=== PATIENT | male | born 1965 | race Caucasian/White ===

== ENCOUNTER → 2021-05-19 | Outpatient (CLI) | payer OTHER ==
--- NOTE | 2021-05-19 16:27 | Diagnostic Imaging Report ---
INDICATION: Worsening back pain. FINDINGS: The lumbar statures are normal. The alignment is anatomic. No fracture or suspicious endplate irregularity. There is only mild facet arthrosis at the L5-S1 level. IMPRESSION: Unremarkable radiographic appearance of the anatomically aligned lumbar spine. Dictated by: Dictated on workstation # [id number]
--- NOTE | 2021-05-19 18:02 | Diagnostic Imaging Report ---
EXAM: Bilateral ankles, two views. HISTORY: Ankle pain. COMPARISON: None available. FINDINGS: Right ankle: Intramedullary nail is present in the right tibia. Mortise appears intact. Talar dome is normal. No acute fracture is seen. Left ankle: Mortise is intact. Talar dome is normal. No acute fracture is seen. IMPRESSION: 1. Right tibial intramedullary nail without acute abnormality in either ankle. Dictated by: Dictated on workstation # [id number]
== END ==
LOC: RAD 09:14
PROVIDERS: ATTEND Anesthesiology Pain Medicine
DX: Z02.71 Encounter for disability determination (principal); M25.572 Pain in left ankle and joints of left foot; M25.571 Pain in right ankle and joints of right foot; M54.5 Low back pain
CPT/HCPCS: 72100

== ENCOUNTER → 2021-07-05 | Outpatient (CLI) | payer SELFPAY ==
--- NOTE | 2021-07-05 09:37 | Diagnostic Imaging Report ---
PROCEDURE: US right lower extremity venous. TECHNIQUE: Multiple real-time grayscale images were obtained over the right lower extremity in various projections. Additional spectral analysis and color Doppler duplex images were also obtained. DATE: July 05, 2021. INDICATION: 56-year-old male, right lower extremity swelling. COMPARISON: None. FINDINGS: The right common femoral vein, right superficial femoral vein, and right popliteal vein are all compressible with demonstrated blood flow. The visualized portions of the right greater saphenous vein and deep femoral vein are patent. There is response to augmentation of the right superficial femoral vein and popliteal vein. The right posterior tibial and peroneal veins are patent. IMPRESSION: 1. Negative for right lower extremity deep venous thrombosis. Dictated by: Dictated on workstation # [id number]
== END ==
LOC: RAD 08:58
PROVIDERS: ATTEND Registered Nurse
DX: M79.89 Other specified soft tissue disorders (principal)